=== PATIENT | female | born 1990 | race African-American/Black ===

== ENCOUNTER 2018-05-15 08:19 | Emergency (ER) | payer MEDICAID ==
[~2018-05-15] VITALS: Ht 165.1 cm; Wt 101.5 kg
[~2018-05-15 08:19] MED LIST: PREN-142 PO
[2018-05-15 10:19] LABS: BASOPHILS % 0.7 % (0.0-2.0); EOSINOPHILS % 3.2 % (0.0-5.0); HEMATOCRIT. 34.7 % (36.0-48.0); HEMOGLOBIN. 11.7 g/dL (12.0-16.0); LYMPHOCYTES % 25.5 % (20.0-50.0); MEAN CORPUSCULAR HEMOGLOBIN 28.6 pg (28.0-32.0); MEAN PLATELET VOLUME 8.4 fl (7.4-10.4); NEUTROPHILS % 63.6 % (40.0-76.0); PLATELET 378 x1000/uL (130-400); RED BLOOD CELL COUNT 4.08 mill/uL (4.2-5.4); RED CELL DISTRIBUTION WIDTH 14.5 % (11.6-14.6)
[2018-05-15 10:27] LABS: CHLORIDE 104 mEq/L (98-107)
[2018-05-15 12:12] LABS: HCG SCREEN POSITIVE
[2018-05-15] MEDS ORDERED: IOHEXOL-350 100 ML BOTTLE ONE (13:37)
[2018-05-15 14:07] VITALS: BP 159/100
== END 2018-05-15 14:45 | disposition home or self-care (01) ==
LOC: ER 08:19
DX: R07.89 Other chest pain (principal); I10 Essential (primary) hypertension; E88.09 Other disorders of plasma-protein metabolism, not elsewhere classified
CPT/HCPCS: 36415; 71045; 71275; 80053; 84484; 84703; 85025; 85379; 93005; 99285; Q9967

== ENCOUNTER 2019-10-11 11:49 | Emergency (ER) | payer MEDICAID ==
[~2019-10-11] VITALS: Ht 170.2 cm; Wt 103.8 kg
[~2019-10-11 11:49] MED LIST changes: -PREN-142 PO; +PRENATAL ONE T1 EACH PO
[2019-10-11 12:06] VITALS: BP 146/77
[2019-10-11] MEDS ORDERED: ACETAMINOPHEN 325MG TABLET PO ONE (12:45)
== END 2019-10-11 12:59 | disposition home or self-care (01) ==
LOC: ER 11:49
DX: R51 Headache (principal); J02.9 Acute pharyngitis, unspecified; I10 Essential (primary) hypertension
CPT/HCPCS: 99282; 99283